=== PATIENT | female | born 1995 | race Caucasian/White ===

== ENCOUNTER → 2018-10-05 | Outpatient (CLI) | payer OTHER ==
[2018-10-05 15:27] LABS: EOS # 0.1 (0.04-0.40); EOS % 1.1 % (1.0-5.0); HEMATOCRIT 43.7 % (37.0-47.0); HEMOGLOBIN 13.8 g/dL (12.5-16.0); LYMPH# 1.8 (1.50-4.00); MEAN CELL VOLUME 92 fl (78-100); MEAN CORPUSCULAR HEMOGLOBIN 29 pg (27-31); MEAN CORPUSCULAR HGB CONC 32 g/dL (33-37); MEAN PLATELET VOLUME 9.7 fl (7.4-10.4); MONO # 0.4 (0.20-0.80); NEU # 3.2 (1.40-6.50); PLATELET COUNT 241 K/mm3 (130-400); RED BLOOD COUNT 4.75 M/mm3 (4.10-5.30); RED CELL DISTRIBUTION WIDTH 13.9 % (11.5-14.5); WHITE BLOOD COUNT 5.5 K/mm3 (4.8-10.8)
[2018-10-05 15:59] LABS: ALBUMIN 4.4 g/dL (3.5-5.0); CALCIUM 9.8 mg/dL (8.4-10.2); POTASSIUM 3.9 mmol/L (3.5-5.1); TOTAL BILIRUBIN 0.7 mg/dL (0.2-1.2); TOTAL PROTEIN 7.6 g/dL (6.4-8.3)
== END ==
LOC: LAB 15:05
PROVIDERS: Physician Assistant
DX: L74.4 Anhidrosis (principal); R53.83 Other fatigue; R11.0 Nausea; R68.2 Dry mouth, unspecified; R63.1 Polydipsia

== ENCOUNTER → 2020-03-28 | Outpatient (CLI) | payer OTHER | LOC: RAD 11:45 | DX: S86.899A Other injury of other muscle(s) and tendon(s) at lower leg level, unspecified leg, initial encounter (principal) ==

== ENCOUNTER → 2020-03-29 | Outpatient (CLI) | payer OTHER | LOC: LAB 08:23 | DX: R09.89 Other specified symptoms and signs involving the circulatory and respiratory systems (principal); R53.83 Other fatigue; R05 Cough; R09.81 Nasal congestion; R09.82 Postnasal drip; Z20.828 Contact with and (suspected) exposure to other viral communicable diseases ==

== ENCOUNTER → 2021-10-08 | Outpatient (CLI) | payer OTHER ==
[2021-10-08 15:01] LABS: BASO # 0.01 K/mm3 (0.02-0.10); HEMATOCRIT 37.9 % (37.0-47.0); HEMOGLOBIN 12.1 g/dL (12.5-16.0); LYMPH# 1.97 K/mm3 (1.50-4.00); MEAN CELL VOLUME 94 fl (78-100); MEAN CORPUSCULAR HEMOGLOBIN 30 pg (27-31); MEAN CORPUSCULAR HGB CONC 32 g/dL (33-37); MEAN PLATELET VOLUME 9.1 fl (7.4-10.4); MONO # 0.63 K/mm3 (0.20-0.80); NEU # 6.88 K/mm3 (1.40-6.50); PLATELET COUNT 273 K/mm3 (130-400); RED BLOOD COUNT 4.04 M/mm3 (4.10-5.30); RED CELL DISTRIBUTION WIDTH 13.1 % (11.5-14.5); WHITE BLOOD COUNT 9.6 K/mm3 (4.8-10.8)
[2021-10-08 15:21] LABS: ALBUMIN 3.8 g/dL (3.5-5.0); POTASSIUM 4.1 mmol/L (3.5-5.1)
[2021-10-08 15:22] LABS: CALCIUM 9.1 mg/dL (8.3-10.5)
[2021-10-08 15:23] LABS: TOTAL PROTEIN 7.2 g/dL (6.4-8.3)
[2021-10-08 15:25] LABS: TOTAL BILIRUBIN 0.3 mg/dL (0.2-1.2)
[2021-10-08 15:30] LABS: MAGNESIUM 2.02 mg/dL (1.60-2.60)
== END ==
LOC: LAB 14:41
PROVIDERS: Physician Assistant
DX: Z13.29 Encounter for screening for other suspected endocrine disorder (principal); Z13.1 Encounter for screening for diabetes mellitus; K90.9 Intestinal malabsorption, unspecified; E78.5 Hyperlipidemia, unspecified; J30.2 Other seasonal allergic rhinitis; T78.49XS Other allergy, sequela; G89.29 Other chronic pain; R53.83 Other fatigue; R25.2 Cramp and spasm; R63.5 Abnormal weight gain

== ENCOUNTER → 2024-06-22 | Outpatient (CLI) | payer OTHER ==
[2024-06-22 22:43] LABS: FOLLICLE STIMULATING HORMONE 2.6 mIU/mL (()); LUTENIZING HORMONE 3.4 mIU/mL (()); PROGESTERONE 3.9 ng/mL (())
== END ==
LOC: LAB 08:14
PROVIDERS: Physician Assistant
DX: E28.2 Polycystic ovarian syndrome (principal)